=== PATIENT | male | born 1960 | race Caucasian/White ===

== ENCOUNTER 2020-10-25 05:35 | Emergency (ER) | payer BC ==
--- NOTE | 2020-10-25 06:21 | EDM.PDOC ---
<Jared Isabel - Last Filed: 10/25/20 06:18> ED HPI GENERAL MEDICAL PROBLEM - General Chief Complaint: Genitourinary Problem Stated Complaint: BLOOD IN URINE Time Seen by Provider: 10/25/20 05:51 Source of Information: Reports: Patient, Family History Limitations: Reports: No Limitations - History of Present Illness INITIAL COMMENTS - FREE TEXT/NARRATIVE: This is a 60-year-old male. About an hour before coming to the ER he woke up and had the urge to go to the bathroom with some lower abdominal discomfort and when he urinated he had gross blood in his urine. He also had a burning sensation and uncomfortable lower abdominal symptoms. He denies any flank pain like a kidney stone and has had no nausea or vomiting. He denies any fever or chills. About a month ago he had a urinary tract infection was noted to have an elevated PSA of 11. Since that time his doctor placed him on 2 antibiotics the last 1 being Cipro that seemed to help with a bladder infection. He has not been scheduled yet to see a urologist but that is in the process. He comes to the ER because of this gross blood in his urine. The patient is not on any sort of blood thinners. Lower Abdomen Pain Score (Numeric/FACES): 2 - Related Data Allergies Allergy/AdvReac Type Severity Reaction Status Date / Time No Known Allergies Allergy Verified 10/25/20 05:51 Home Meds: Home Meds Cefdinir [Omnicef] 300 mg PO BID #14 cap 10/25/20 [Rx] Past Medical History Genitourinary History: Reports: Renal Calculus, UTI, Recurrent - Infectious Disease History Infectious Disease History: Reports: Novel Coronavirus Social & Family History - Tobacco Use Tobacco Use Status *Q: Never Tobacco User - Caffeine Use Caffeine Use: Reports: Coffee - Recreational Drug Use Recreational Drug Use: No ED ROS GENERAL - Review of Systems Review Of Systems: See Below Constitutional: Denies: Fever, Chills HEENT: Reports: No Symptoms Respiratory: Reports: No Symptoms Cardiovascular: Reports: No Symptoms Endocrine: Reports: No Symptoms GI/Abdominal: Reports: Abdominal Pain. Denies: Nausea, Vomiting : Reports: Dysuria, Hematuria. Denies: Flank Pain Musculoskeletal: Denies: Back Pain Skin: Reports: No Symptoms Neurological: Reports: No Symptoms Psychiatric: Reports: No Symptoms Hematologic/Lymphatic: Reports: No Symptoms ED EXAM, RENAL/ - Physical Exam Exam: See Below Exam Limited By: No Limitations General Appearance: Alert, WD/WN, No Apparent Distress Eye Exam: Bilateral Eye: Normal Inspection Ears: Normal External Exam Nose: Normal Inspection Throat/Mouth: Normal Lips, Normal Voice, No Airway Compromise Head: Normocephalic Neck: Supple Respiratory/Chest: No Respiratory Distress, Lungs Clear, Normal Breath Sounds Cardiovascular: Regular Rate, Rhythm, No Murmur GI/Abdominal: Soft, Other (Mild discomfort over the suprapubic area on palpation but there is no guarding or rigidity. In the left lower quadrant in the right lower quadrant he has some mild soreness but not the same is over his bladder area his upper abdomen does not have any tenderness and he has good bowel sounds.) Back Exam: Normal Inspection, Full Range of Motion Extremities: Normal Inspection, Normal Range of Motion Neurological: Alert, Oriented Psychiatric: Normal Affect, Normal Mood Skin Exam: Warm, Dry Departure - Departure Disposition: Home, Self-Care 01 Clinical Impression: Hematuria - Discharge Information Referrals: Car Cortez MD [Primary Care Provider] - Forms: ED Department Discharge Additional Instructions: Return to the emergency room with any questions problems or worsening symptoms. You have been started on an antibiotic, start this Tuesday morning and take twice daily until all gone. Follow-up with your regular physician later this week after the CT has been done. Also discuss with him referral to urology and if he wants to continue the antibiotics longer than 1 week. Push lots of fluids. Sepsis Event Note (ED) - Evaluation Sepsis Screening Result: No Definite Risk <Paco Toro - Last Filed: 10/25/20 09:02> Course - Vital Signs Last Recorded V/S: Last Vital Signs Temp 36.0 C L 10/25/20 05:42 Pulse 65 10/25/20 05:42 Resp 20 10/25/20 05:42 BP 151/114 H 10/25/20 05:42 Pulse Ox 98 10/25/20 05:42 - Orders/Labs/Meds Orders: Active Orders 24 hr Category Date Time Status cefTRIAXone [Rocephin] 1 gm Med 10/25/20 08:30 Active Lidocaine 1% [Xylocaine 1%] 2.1 ml IM Q24H Medication Orders Ceftriaxone Sodium 1 gm/ (Lidocaine HCl 2.1 ml) 0 gm IM Q24H TERRIE Last Admin: 10/25/20 08:36 Dose: 2.1 inj Documented by: CELINA Labs: Laboratory Tests 10/25/20 10/25/20 10/25/20 Range/Units 05:55 06:20 06:20 WBC 7.52 (4.23-9.07) K/mm3 RBC 4.74 (4.63-6.08) M/mm3 Hgb 15.4 (13.7-17.5) gm/dl Hct 44.8 (40.1-51.0) % MCV 94.5 H (79.0-92.2) fl MCH 32.5 H (25.7-32.2) pg MCHC 34.4 (32.2-35.5) g/dl RDW Std Deviation 41.1 (35.1-43.9) fL Plt Count 139 L (163-337) K/mm3 MPV 10.4 (9.4-12.3) fl Neut % (Auto) 79.9 H (34.0-67.9) % Lymph % (Auto) 11.0 L (21.8-53.1) % Delta % (Auto) 7.4 (5.3-12.2) % Eos % (Auto) 1.5 (0.8-7.0) Baso % (Auto) 0.1 (0.1-1.2) % Neut # (Auto) 6.00 H (1.78-5.38) K/mm3 Lymph # (Auto) 0.83 L (1.32-3.57) K/mm3 Delta # (Auto) 0.56 (0.30-0.82) K/mm3 Eos # (Auto) 0.11 (0.04-0.54) K/mm3 Baso # (Auto) 0.01 (0.01-0.08) K/mm3 PT 11.3 (9.7-12.0) SECONDS INR 1.06 Sodium (136-145) mEq/L Potassium (3.5-5.1) mEq/L Chloride (98-107) mEq/L Carbon Dioxide (21-32) mEq/L Anion Gap (5-15) BUN (7-18) mg/dL Creatinine (0.7-1.3) mg/dL Est Cr Clr Drug Dosing mL/min Estimated GFR (MDRD) (>60) mL/min BUN/Creatinine Ratio (14-18) Glucose (74-106) mg/dL Calcium (8.5-10.1) mg/dL Total Bilirubin (0.2-1.0) mg/dL AST (15-37) U/L ALT (16-63) U/L Alkaline Phosphatase (46-116) U/L Total Protein (6.4-8.2) g/dl Albumin (3.4-5.0) g/dl Globulin gm/dL Albumin/Globulin Ratio (1-2) Urine Color Red H (Yellow) Urine Appearance Turbid H (Clear) Urine pH 8.5 H (5.0-8.0) Ur Specific [place] 1.010 (1.005-1.030) Urine Protein 3+ H (Negative) Urine Glucose (UA) Trace H (Negative) Urine Ketones 2+ H (Negative) Urine Occult Blood 3+ H (Negative) Urine Nitrite Positive H (Negative) Urine Bilirubin 3+ H (Negative) Urine Urobilinogen >=8.0 H (0.2-1.0) Ur Leukocyte Esterase 3+ H (Negative) Urine RBC Too numerous to cnt H (0-5) /hpf Urine WBC See comment (0-5) /hpf Ur Squamous Epith Cells Not seen (0-5) /hpf Urine Bacteria See note (FEW) /hpf Urine Mucus Not seen (FEW) /hpf 10/25/20 Range/Units 06:20 WBC (4.23-9.07) K/mm3 RBC (4.63-6.08) M/mm3 Hgb (13.7-17.5) gm/dl Hct (40.1-51.0) % MCV (79.0-92.2) fl MCH (25.7-32.2) pg MCHC (32.2-35.5) g/dl RDW Std Deviation (35.1-43.9) fL Plt Count (163-337) K/mm3 MPV (9.4-12.3) fl Neut % (Auto) (34.0-67.9) % Lymph % (Auto) (21.8-53.1) % Delta % (Auto) (5.3-12.2) % Eos % (Auto) (0.8-7.0) Baso % (Auto) (0.1-1.2) % Neut # (Auto) (1.78-5.38) K/mm3 Lymph # (Auto) (1.32-3.57) K/mm3 Delta # (Auto) (0.30-0.82) K/mm3 Eos # (Auto) (0.04-0.54) K/mm3 Baso # (Auto) (0.01-0.08) K/mm3 PT (9.7-12.0) SECONDS INR Sodium 143 (136-145) mEq/L Potassium 3.7 (3.5-5.1) mEq/L Chloride 103 (98-107) mEq/L Carbon Dioxide 31 (21-32) mEq/L Anion Gap 12.7 (5-15) BUN 15 (7-18) mg/dL Creatinine 1.2 (0.7-1.3) mg/dL Est Cr Clr Drug Dosing 77.06 mL/min Estimated GFR (MDRD) > 60 (>60) mL/min BUN/Creatinine Ratio 12.5 L (14-18) Glucose 99 (74-106) mg/dL Calcium 8.7 (8.5-10.1) mg/dL Total Bilirubin 1.2 H (0.2-1.0) mg/dL AST 18 (15-37) U/L ALT 30 (16-63) U/L Alkaline Phosphatase 60 (46-116) U/L Total Protein 6.0 L (6.4-8.2) g/dl Albumin 3.7 (3.4-5.0) g/dl Globulin 2.3 gm/dL Albumin/Globulin Ratio 1.6 (1-2) Urine Color (Yellow) Urine Appearance (Clear) Urine pH (5.0-8.0) Ur Specific [place] (1.005-1.030) Urine Protein (Negative) Urine Glucose (UA) (Negative) Urine Ketones (Negative) Urine Occult Blood (Negative) Urine Nitrite (Negative) Urine Bilirubin (Negative) Urine Urobilinogen (0.2-1.0) Ur Leukocyte Esterase (Negative) Urine RBC (0-5) /hpf Urine WBC (0-5) /hpf Ur Squamous Epith Cells (0-5) /hpf Urine Bacteria (FEW) /hpf Urine Mucus (FEW) /hpf Meds: Medications Generic Name Dose Route Start Last Admin Trade Name Zaynab PRN Reason Stop Dose Admin Ceftriaxone Sodium 1 gm/ 0 gm 10/25/20 08:30 10/25/20 08:36 Lidocaine HCl 2.1 ml IM 2.1 inj Q24H TERRIE Administration - Re-Assessments/Exams Free Text/Narrative Re-Assessment/Exam: 10/25/20 07:29 Assumed care at change of shift. Patient just went to ultrasound. The case was reviewed with Dr. Brown the on-call urologist at [facility] in [place]. His recommendation is to check a CT urogram. He also agreed with putting the patient back on Cipro. I did discuss the CT urogram with radiology and this is probably best done as an outpatient on weekdays. I did review this with the patient. The patient has been drinking lots of fluids anticipating ultrasound however ultrasound got called to emergency and the patient had to wait. When I did interview the patient he was somewhat uncomfortable but blamed all this on trying to retain his urine. Will reassess after the ultrasound. 10/25/20 08:27 Ultrasound is unremarkable for any kidney pathology or hydronephrosis. They did notice a small postvoid residual within the bladder and some mild bladder wall thickening. Radiology did suggest that this is probably related to not complete voiding perhaps due to prostate issues. We will get him scheduled for a CT urogram. And have him follow-up with his doctor this next week to arrange urology evaluation. The patient voiced some concerns about being put back on Cipro because of tendon issues. I will go ahead and give him a gram of Rocephin here and start him on Omnicef 300 mg twice daily for 7 days. The patient is doing much better after being able to void. He is no longer uncomfortable. Departure - Departure Time of Disposition: 08:48 Sepsis Event Note (ED) - Focused Exam Vital Signs: Vital Signs Temp Pulse Resp BP Pulse Ox 10/25/20 05:42 36.0 C L 65 20 151/114 H 98 - My Orders Last 24 Hours: My Active Orders 10/25/20 08:30 cefTRIAXone [Rocephin] 1 gm Lidocaine 1% [Xylocaine 1%] 2.1 ml IM Q24H - Assessment/Plan Last 24 Hours: My Active Orders 10/25/20 08:30 cefTRIAXone [Rocephin] 1 gm Lidocaine 1% [Xylocaine 1%] 2.1 ml IM Q24H
--- NOTE | 2020-10-25 08:15 | US ---
Renal ultrasound: Multiple real-time images of the kidneys were obtained. Kidneys show no hydronephrosis or mass. No abnormal fluid collections are seen around the kidneys. Resistivity indices are normal within both kidneys. Right kidney length is 12.2 cm and left kidney length is 12.2 cm. Bladder shows mild wall thickening with minimal lobulation of portions of the bladder wall possibly due to slight obstruction from the prostate gland. Bilateral ureteral jets are seen. Prevoid bladder volume is 319 mL and postvoid bladder volume is 89 mL. Impression: 1. Small post void residual within the bladder with mild bladder wall thickening and slight lobulation most likely relating to problems with complete voiding due to prostate difficulties. 2. No renal abnormality is seen. Diagnostic code #2
[2020-10-25] MEDS ORDERED: cefTRIAXone 1 GM, Lidocaine 1% 2.1 ML IM SCH ×2 (08:30)
== END 2020-10-25 09:09 | disposition home or self-care (01) ==
LOC: JD.ED 05:35
DX: R31.9 Hematuria, unspecified (principal)
CPT/HCPCS: 36415; 76770; 80053; 81001; 85025; 85610; 96372; 99284; J0696

== ENCOUNTER 2022-09-13 06:43 | Emergency (ER) | payer BC | END 2022-09-13 09:20 | disposition home or self-care (01) | LOC: JD.ED 06:43 | DX: T83.9XXA Unspecified complication of genitourinary prosthetic device, implant and graft, initial encounter (principal); Z79.899 Other long term (current) drug therapy; Z86.16 Personal history of COVID-19 | CPT/HCPCS: 36415; 80053; 85025; 99283 ==

== ENCOUNTER 2023-02-22 09:09 | Emergency (ER) | payer BC ==
[2023-02-22] MEDS ORDERED: Diltiazem 25 MG/5 ML SDV IVPUSH ONE (10:13)
[2023-02-22] MEDS ORDERED: Dextrose 5%-0.9% NaCl 1,000 ML IV SCH (10:15)
[2023-02-22] MEDS ORDERED: Diltiazem 125 MG in Sodium Chloride 0.9% 100 ML IV SCH (10:15)
[2023-02-22 10:28] LABS: BASOPHILS ABSOLUTE AUTO 0.01 K/mm3 (0.01-0.08); BASOPHILS PERCENT AUTO 0.2 % (0.1-1.2); EOSINOPHILS PERCENT AUTO 2.3 (0.8-7.0); HEMATOCRIT 48.9 % (40.1-51.0); LYMPHOCYTES ABSOLUTE AUTO 0.81 K/mm3 (1.32-3.57); LYMPHOCYTES PERCENT AUTO 18.5 % (21.8-53.1); MEAN CORPUSCULAR HEMOGLOBIN 32.7 pg (25.7-32.2); MEAN CORPUSCULAR HGB CONC 33.9 g/dl (32.2-35.5); MEAN CORPUSCULAR VOLUME 96.4 fl (79.0-92.2); MEAN PLATELET VOLUME 11.2 fl (9.4-12.3); MONOCYTES ABSOLUTE AUTO 0.37 K/mm3 (0.30-0.82); MONOCYTES PERCENT AUTO 8.4 % (5.3-12.2); NEUTROPHILS ABSOLUTE AUTO 3.09 K/mm3 (1.78-5.38); NEUTROPHILS PERCENT AUTO 70.6 % (34.0-67.9); PLATELET COUNT,PLT 163 K/mm3 (163-337); RED BLOOD CELL COUNT 5.07 M/mm3 (4.63-6.08); WHITE BLOOD CELL COUNT,WBC 4.38 K/mm3 (4.23-9.07)
[2023-02-22 10:29] LABS: HEMOGLOBIN 16.6 gm/dl (13.7-17.5)
[2023-02-22 10:34] LABS: INR 1.04; PROTHROMBIN TIME 11.1 SECONDS (9.7-12.0)
[2023-02-22 10:35] LABS: PTT,PARTIAL THROMBOPLSTIN TIME 27.1 SECONDS (21.7-31.4)
[2023-02-22] MEDS ORDERED: Sodium Chloride 0.9% 1,000 ML IV SCH (11:00)
[2023-02-22 11:10] LABS: ANION GAP 12.1 (5-15); BLOOD UREA NITROGEN,BUN 15 mg/dL (7-18); BUN/CREATININE RATIO 16.7 (14-18); CARBON DIOXIDE,CO2 28 mEq/L (21-32); CHLORIDE,CL 104 mEq/L (98-107); CREATININE 0.9 mg/dL (0.7-1.3); EST CRCL DRUG DOSING (CG) 100.21 mL/min; ESTIMATED GFR 97 mL/min (>60); GLUCOSE RANDOM 92 mg/dL (70-99); POTASSIUM,K 4.1 mEq/L (3.5-5.1); SODIUM,NA 140 mEq/L (136-145)
[2023-02-22 11:11] LABS: A/G RATIO 1.8 (1-2); ALANINE AMINOTRANSFERASE,ALT 33 U/L (16-63); ALBUMIN 4.1 g/dl (3.4-5.0); ALKALINE PHOSPHATASE 62 U/L (46-116); ASPARTATE AMNIOTRANSFERASE,AST 21 U/L (15-37); BILIRUBIN TOTAL 1.1 mg/dL (0.2-1.0); C-REACTIVE PROTEIN <0.2 mg/dL (<1.0); MAGNESIUM 2.2 mg/dL (1.8-2.4); PROTEIN TOTAL,TP 6.4 g/dl (6.4-8.2)
[2023-02-22 11:12] LABS: TROPONIN I HIGH SENSITIVITY 8 pg/mL (<=76)
[2023-02-22 11:22] LABS: CKMB 4.2 ng/ml (0-3.6)
[2023-02-22] MEDS ORDERED: Diltiazem 180 MG Cap.CD PO ONE (15:17)
== END 2023-02-22 16:57 | disposition home or self-care (01) ==
LOC: JD.ED 09:09
DX: I48.91 Unspecified atrial fibrillation (principal); Z86.16 Personal history of COVID-19
CPT/HCPCS: 36415; 71045; 80053; 82553; 83735; 83880; 84484; 85025; 85610; 85730; 86140; 96361; 96365; 96366; 96375; 96376; 99285; A9270; J1742; J3490; J7030; J7042

== ENCOUNTER 2023-05-28 15:49 | Emergency (ER) | payer BC ==
[2023-05-28] MEDS ORDERED: Sodium Chloride 0.9% 10 ML Syringe FLUSH PRN (16:12)
[2023-05-28] MEDS ORDERED: Diltiazem 25 MG/5 ML SDV IVPUSH ONE (16:13)
[2023-05-28] MEDS ORDERED: Diltiazem 125 MG in Sodium Chloride 0.9% 100 ML IV SCH (16:15)
[2023-05-28 16:32] LABS: BASOPHILS PERCENT AUTO 0.5 % (0.0-1.0); EOSINOPHILS ABSOLUTE AUTO 0.1 K/mm3 (0.0-0.4); HEMATOCRIT 48.4 % (42.0-52.0); HEMOGLOBIN 17.4 gm/dl (14.0-18.0); IMMATURE GRAN ABSOLUTE AUTO 0.02 K/mm3 (0.00-0.05); IMMATURE GRAN PERCENT AUTO 0.4 % (0.0-0.4); LYMPHOCYTES ABSOLUTE AUTO 1.1 K/mm3 (1.0-4.8); LYMPHOCYTES PERCENT AUTO 20.2 % (24.0-44.0); MEAN CORPUSCULAR HEMOGLOBIN 34.1 pg (28.0-32.0); MEAN CORPUSCULAR VOLUME 94.9 fl (83.0-99.0); MEAN PLATELET VOLUME 10.7 fl (9.4-12.4); MONOCYTES ABSOLUTE AUTO 0.5 K/mm3 (0.0-0.8); MONOCYTES PERCENT AUTO 9.7 % (0.0-8.0); NEUTROPHILS ABSOLUTE AUTO 3.7 K/mm3 (1.8-7.7); NEUTROPHILS PERCENT AUTO 67.2 % (41.0-71.0); PLATELET COUNT,PLT 171 K/mm3 (150-400); WHITE BLOOD CELL COUNT,WBC 5.54 K/mm3 (3.9-11.3)
[2023-05-28 16:51] LABS: A/G RATIO 1.6 (1-2); ALBUMIN 4.2 g/dl (3.4-5.0); ANION GAP 16.2 (5-15); BILIRUBIN TOTAL 1.9 mg/dL (0.2-1.0); CALCIUM 9.2 mg/dL (8.5-10.1); EST CRCL DRUG DOSING (CG) 90.19 mL/min; POTASSIUM,K 4.2 mEq/L (3.5-5.1); PROTEIN TOTAL,TP 6.8 g/dl (6.4-8.2); TSH 1.02 uIU/mL (0.358-3.74)
== END 2023-05-28 18:20 | disposition home or self-care (01) ==
LOC: JD.ED 15:49
DX: I48.91 Unspecified atrial fibrillation (principal); Z86.16 Personal history of COVID-19; Z87.891 Personal history of nicotine dependence; Z79.899 Other long term (current) drug therapy
CPT/HCPCS: 36415; 71045; 80053; 84443; 84484; 85025; 93005; 96365; 96366; 96376; 99285; J3490; 93010; 99284

== ENCOUNTER 2024-07-09 13:53 | Emergency (ER) | payer BC ==
[2024-07-09] MEDS: Sodium Chloride 0.9% 1,000 ML IV ONE (15:18)
[2024-07-09] MEDS ORDERED: Sodium Chloride 0.9% 10 ML Syringe FLUSH PRN (15:20)
[2024-07-09 16:20] LABS: APPEARANCE,URINE CLEAR (Clear); BILIRUBIN,URINE NEGATIVE (Negative); COLOR,URINE YELLOW (Yellow); GLUCOSE,URINE NEGATIVE (Negative); KETONES,URINE NEGATIVE (Negative); LEUKOCYTE ESTERASE,URINE TRACE (Negative); NITRITE,URINE NEGATIVE (Negative); OCCULT BLOOD,URINE TRACE-INTACT (Negative); PROTEIN,URINE 1+ (Negative); UROBILINOGEN,URINE 0.2 (0.2-1.0)
[2024-07-09 16:20] LABS: ANION GAP 13.1 (5-15); BUN/CREATININE RATIO 11.6 (14-18); CALCIUM 9.4 mg/dL (8.5-10.1); CREATININE 6.1 mg/dL (0.7-1.3); EST CRCL DRUG DOSING (CG) 14.6 mL/min; POTASSIUM,K 5.1 mEq/L (3.5-5.1)
[2024-07-09 16:36] LABS: BACTERIA,URINE FEW /hpf (FEW); MUCUS,URINE FEW /hpf (FEW); SQUAMOUS EPITHELIAL CELLS,UR 0-5 /hpf (0-5); WBC,URINE 0-5 /hpf (0-5)
[2024-07-09 16:37] LABS: CREATININE,URINE RAND 73.5 mg/dL (30.0-125.0)
== END 2024-07-09 19:40 ==
LOC: JD.ED 13:53
DX: N17.9 Acute kidney failure, unspecified (principal); Z86.16 Personal history of COVID-19; Z79.82 Long term (current) use of aspirin
CPT/HCPCS: 36415; 76770; 80048; 81001; 82570; 84156; 84484; 87086; 96360; 99285; J7030; 99284